=== PATIENT | male | born 2005 | race Caucasian/White ===

== ENCOUNTER 2025-01-27 11:41 | Emergency (ER) | payer OTHER ==
[~2025-01-27] VITALS: Ht 175.3 cm; Wt 82.0 kg
[2025-01-27 11:57] VITALS: O2SAT 100
[2025-01-27] MEDS: KETOROLAC 15MG/ML VIAL IM ONE (12:44)
[2025-01-27 15:30] VITALS: BP 128/53; PULSE 82; RESP 12; TEMP 36.7; O2SAT 100
[2025-01-27] MEDS ORDERED: NAPR-681 MT (15:30)
== END 2025-01-27 13:35 | disposition home or self-care (01) ==
LOC: ER 11:41
DX: R07.81 Pleurodynia (principal); Z79.1 Long term (current) use of non-steroidal anti-inflammatories (NSAID); V89.2XXA Person injured in unspecified motor-vehicle accident, traffic, initial encounter; Y93.89 Activity, other specified; Y92.89 Other specified places as the place of occurrence of the external cause; Y99.8 Other external cause status
CPT/HCPCS: 71101; 93005; 96372; 99284; J1885; Z7610